=== PATIENT | male | born 1985 | race Caucasian/White ===

== ENCOUNTER 2017-07-16 14:57 | Emergency (ER) | payer SELFPAY, MEDICAID | END 2017-07-16 18:28 | disposition left against medical advice (07) | LOC: E/R 14:57 → FTE 18:28 | DX: Z53.21 Procedure and treatment not carried out due to patient leaving prior to being seen by health care provider (principal) ==

== ENCOUNTER 2017-10-09 21:57 | Emergency (ER) | payer MEDICAID ==
[2017-10-09] MEDS: DEXAMETHASONE 10 MG/ML 1 ML INJ IM (23:16)
[2017-10-09] MEDS: DIPHENHYDRAMINE 25 MG CAP PO (23:16)
== END 2017-10-09 23:40 | disposition home or self-care (01) ==
LOC: FTE 21:57
DX: S40.861A Insect bite (nonvenomous) of right upper arm, initial encounter (principal); S50.861A Insect bite (nonvenomous) of right forearm, initial encounter; W57.XXXA Bitten or stung by nonvenomous insect and other nonvenomous arthropods, initial encounter; Y92.9 Unspecified place or not applicable
CPT/HCPCS: 96372; 99284-25; J1100